=== PATIENT | female | born 1945 | race Caucasian/White ===

== ENCOUNTER → 2018-12-13 | Outpatient (CLI) | payer MEDICARE, OTHER ==
[~2018-12-13] MED LIST: CALC600T4 PO; CETI10TA22 PO; DOCU50CA9 PO; HYDR-2765 PO; LATA2.5D2 EACHEYE; LEVO75TA PO; LOSA1TAB22 PO; MELO7.5T29 PO; MONT10TA49 PO; MULT1TAB52 PO; OMEP20TA63 PO; POLY119P4 PO; PRAM0.255 PO; VITA1CAP7 PO
--- NOTE | 2018-12-13 13:35 | EKG ---
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
[2018-12-13 13:47] LABS: BASO % 1 % (0-3); EOS # 0.1 x10^3/uL (0.0-0.7); EOS % 2 % (0-3); HEMATOCRIT 32.1 % (36.0-47.0); HEMOGLOBIN 11.2 g/dL (12.0-15.5); LYMPH % 35 % (24-48); MEAN CORPUSCULAR HEMOGLOBIN 32 pg (25-35); MEAN CORPUSCULAR HGB CONC 35 g/dL (31-37); MEAN CORPUSCULAR VOLUME 92 fL (79-100); MONO # 0.5 x10^3/uL (0.0-1.1); MONO % 9 % (0-9); NEUT % 52 % (31-73); PLATELET COUNT 219 x10^3/uL (140-400); RED BLOOD COUNT 3.48 x10^6/uL (3.50-5.40); RED CELL DISTRIBUTION WIDTH 13.2 % (11.5-14.5); WHITE BLOOD COUNT 5.7 x10^3/uL (4.0-11.0)
[2018-12-13 14:23] LABS: ALBUMIN 3.9 g/dL (3.4-5.0); ALBUMIN/GLOBULIN RATIO 1.1 (1.0-1.7); CALCIUM 9.2 mg/dL (8.5-10.1); CREATININE 1.2 mg/dL (0.6-1.0); GFR 43.9; TOTAL BILIRUBIN 0.5 mg/dL (0.2-1.0); TOTAL PROTEIN 7.3 g/dL (6.4-8.2)
[2018-12-15 00:07] LABS: HEMOGLOBIN A1C 6.6 % (4.8-5.6)
== END | disposition home or self-care (01) ==
LOC: SURGPAT 12:48
PROVIDERS: ATTEND Neurological Surgery
DX: Z01.818 Encounter for other preprocedural examination (principal); M51.16 Intervertebral disc disorders with radiculopathy, lumbar region; Z88.2 Allergy status to sulfonamides; Z88.5 Allergy status to narcotic agent
CPT/HCPCS: 36415; 80053; 82306; 83036; 85025; 87641; 93005

== ENCOUNTER 2018-12-26 07:15 | Day surgery (SDC) | payer MEDICARE, OTHER ==
[~2018-12-26] VITALS: Ht 160 cm; Wt 81.0 kg
--- NOTE | 2018-12-26 06:39 | HP ---
ADMIT DATE: 12/26/2018. PREOPERATIVE HISTORY AND PHYSICAL DATE OF SURGERY: 12/26/2018 HISTORY OF PRESENT ILLNESS: The patient is a pleasant 73-year-old, who has difficulty with right hip, right buttock, posterior lateral thigh, and leg pain. She notes numbness in her right foot. The problem started on 10/25. She states she bent, felt a pop, and has had pain ever since. She rates her pain as 8/10. Standing or bending increases her pain. Sitting position is painful for her. She has been taking Percocet and resting. She has had surgery on the lumbar side in the past in 2000 and in 2003. PAST MEDICAL/SURGICAL HISTORY: Arthritis, hypertension, diabetes, thyroid disease, cataract, hysterectomy, cholecystectomy, appendectomy, carpal tunnel release, right knee replacement, lumbar surgery in 2000, and lumbar surgery in 2003. FAMILY HISTORY: Alzheimer's, cancer, diabetes, heart disease, and hypertension. SOCIAL HISTORY: Retired; ; quit smoking greater than 5 years ago; drinks alcohol 1-2 times per month. ALLERGIES: MORPHINE. CURRENT MEDICATIONS: Percocet, Robaxin, losartan, Prilosec, meloxicam, Zyrtec, Singulair, Mirapex, Xalatan, multivitamin, Super B-Complex, calcium, and MiraLax stool softener. REVIEW OF SYSTEMS: A 12-point review of systems was obtained and is noncontributory except that mentioned above. NEUROSURGERY EXAMINATION: GENERAL APPEARANCE: Alert, pleasant, in no acute distress. HEAD: Normocephalic and atraumatic. SKIN: Warm and dry. MUSCULOSKELETAL: Lumbar paraspinal muscle bulk is normal, restricted range of motion of the lumbar spine, [id number] tenderness of the lower lumbar spine with palpation, normal range of motion of the lower extremities bilaterally. EXTREMITIES: No clubbing, cyanosis, or edema. NEUROLOGIC: Alert and oriented x3; normal recent and remote memory; strength 5/5 in bilateral lower extremities except for her right EHL, which is 3/5. Sensory is intact to light touch in bilateral lower extremities except for decrease in the dorsum of her right foot with light touch. Reflexes are present and symmetric in lower extremities bilaterally, positive straight leg raising on the right, negative straight leg raising on the left. IMAGING: I reviewed her lumbar MRI scan. There were number of abnormalities. There is grade 1 anterolisthesis of L3 and L4. There is a levoconvex scoliosis of the lumbar spine at L4-L5 on the right. There is extruded disc fragment, which is in the lateral right recess and extends below the disc space associated with significant compression of the right nerve root. At L5-S1, there is left-sided disk bulging. ASSESSMENT/PLAN: I believe the problems at L4-L5 on the right are responsible for pain. The other lumbar issues, I feel, are stable. My recommendation because of the severe pain and footdrop is for her to undergo lumbar microsurgery at L4-L5 on the right side to remove the extruded disk fragment and decompress the nerve root. I did discuss this with her and her in detail. We spoke about the surgery, risks, and expected postoperative course. They understand. They would like to go ahead. THERESA INMAN MD DR: DANIEL/mitchel JOB#: [id number] / [id number] [facility]
[~2018-12-26 07:15] MED LIST changes: +BACITRACIN 50,000 UNIT in IV NORMAL SALINE 1000ML BAG 1,000 ML IRR ONE; +BUPIVACAINE-EPI 0.5%-1:200000 MPF 30 ML VIAL. INJ ONE; +VANCOMYCIN 1GM IVPB FOR OMNI 250 ML IV ONE
[2018-12-26] MEDS ORDERED: THROMBIN TOPICAL 20,000 UNIT SPRAY.SYRN KIT TP ONE (07:39)
[2018-12-26] MEDS ORDERED: KETOROLAC 60 MG/2 ML VIAL. ONE (07:39)
[2018-12-26] MEDS ORDERED: GELATIN SPONGE SIZE 100. ONE (07:39)
[2018-12-26] MEDS ORDERED: PROPOFOL 20 ML IV ONE (07:43)
[2018-12-26] MEDS ORDERED: PROPOFOL 50 ML IV ONE (07:43)
[2018-12-26] MEDS ORDERED: REMIFENTANIL 2 MG VIAL. IV ONE (07:43)
[2018-12-26] MEDS ORDERED: fentaNYL PF VIAL 100 MCG/2 ML VIAL ONE (07:43)
[2018-12-26] MEDS ORDERED: ROCURONIUM 50 MG/5 ML VIAL. ONE (07:43)
[2018-12-26] MEDS ORDERED: 0.9 % SODIUM CHLORIDE 20 ML VIAL. IJ ONE (07:45)
[2018-12-26] MEDS ORDERED: ceFAZolin 2GM PREMIX 2 GM/50 ML BAG IV ONE (08:00)
[2018-12-26] MEDS ORDERED: IV RINGERS,LACTATED 1000ML 1,000 ML IV SCH ×2 (08:15→11:32)
[2018-12-26] MEDS ORDERED: DESFLURANE > 120 MINUTES IH ONE (08:53)
[2018-12-26] MEDS ORDERED: DEXAMETHASONE SOD PHOS 20 MG/5 ML VIAL. ONE (08:53)
[2018-12-26] MEDS ORDERED: PHENYLEPHRINE in 0.9% NACL PF 1 MG/10 ML SYRINGE. IV ONE (09:07)
[2018-12-26] MEDS ORDERED: ONDANSETRON PF 4 MG/2 ML VIAL. ONE (09:27)
[2018-12-26] MEDS ORDERED: ePHEDrine PF IN SALINE 50 MG/10 ML SYRINGE. IV ONE (09:33)
--- NOTE | 2018-12-26 11:08 | DISCH ---
DISCHARGE INSTRUCTIONS Condition on Discharge Condition on Discharge: Stable Activity After Discharge Activity Instructions for Disc: Activity as tolerated, Avoid exertion Other activity instructions: no driving for a week Bathing Instructions: Shower-keep dressing dry Lifting Instructions after Dis: No heavy lifting, No pulling or pushing, Do not lift >10 pounds Diet after Discharge Additional Diet Restrictions: resume home diet Wound Incision Care Wound/Incision Care: Ice to area for comfort Other wound/incision instructi: may remove dressing in 48 hours if dry then may shower, no soaking Contacting the after DC Call your doctor for: Concerns you may have Follow-Up Follow up with: Dr. Inman's nurse in 2 weeks [phone] THERESA INMAN MD Dec 26, 2018 11:08
--- NOTE | 2018-12-26 11:19 | OP ---
DATE OF SURGERY: 12/26/2018 PREOPERATIVE DIAGNOSES: Herniated lumbar disc, L4-L5, right with right lumbar radiculopathy. POSTOPERATIVE DIAGNOSES: Herniated lumbar disc, L4-L5, right with right lumbar radiculopathy. OPERATION PERFORMED: Hemilaminotomy and microdiscectomy, L4-L5, right. The operation was done with EMG monitoring, SSEP monitoring, fluoroscopy, microscopic dissection. SURGEON: Cristhian Inman M.D. TRAINING SYSTEMS OFFICER:LORENA Richard. OPERATIVE INDICATIONS: The patient is a very pleasant 73-year-old, who developed intractable back and right leg pain, which failed conservative measures. She had the above-mentioned findings on imaging studies and I recommended lumbar microsurgery. I spoke with her about the risks, the technique, and the expected postoperative course and she wished for me to go ahead. DESCRIPTION OF PROCEDURE: Following general endotracheal anesthesia, the patient was positioned prone on the Zack frame. Her lumbar region was prepped and draped in a standard fashion. DANYEL hose and AV impulse boots were applied for DVT prophylaxis. A microscope was draped. Fluoroscopy was draped and brought into field. Monitoring was established. Ancef 2 grams and vancomycin 1 gram were given about less than 1 hour prior to initiation of the surgery. Using fluoroscopic guidance, an incision was made directly over the L4-L5 interspace. I dissected down through skin and subcutaneous tissue. The patient had undergone previous surgeries and there was moderate amount of scarring, but we worked through this and I was able to obtain an excellent exposure, placing a [place] micro disc retractor. I brought in the microscope and using the high-speed air drill, I burred down a generous hemilaminotomy. I made a large foraminotomy and there was inferior portion to the disc herniation. I then trimmed away thickened ligamentum flavum, exposing the dura and the exiting L5 root gently retracted the root medially where there was a large bulging disc, which extended inferiorly into the disc space and I incised the annulus and ligament and performed discectomy with pituitary rongeurs. The area was considerably degenerated, but as I worked, I was able to tease back multiple disc fragments and fully decompressed the region. I explored carefully above and below the disc space. There were no retained fragments. I irrigated copiously with antibiotic solution. At this point, then I felt I had an excellent decompression. Hemostasis was excellent. I did coagulate a few epidural veins early on, but there was never any significant hemorrhage whatsoever. Bone wax was also used for any bone bleeding. I irrigated copiously. I closed the wound in layers then with absorbable suture and the skin was closed with 4-0 subcuticular stitch. The surgery went very well. CRISTHIAN INMAN MD DR: DANIEL/mitchel JOB#: [id number] / [id number] [facility]
[2018-12-26] MEDS ORDERED: ONDANSETRON PF 4 MG/2 ML VIAL. IV PRN (11:45)
[2018-12-26] MEDS ORDERED: PROCHLORPERAZINE 10 MG/2 ML VIAL. IV PRN (11:45)
[2018-12-26] MEDS ORDERED: fentaNYL PF VIAL 100 MCG/2 ML VIAL IV PRN (11:45)
[2018-12-26] MEDS ORDERED: HYDROcodone/APAP 7.5/325MG 1 TAB TABLET PO ONE (11:45)
[2018-12-26] MEDS: fentaNYL PF VIAL 100 MCG/2 ML VIAL IV PRN ×2 (11:58→12:37)
[2018-12-26 12:45] VITALS: BP 146/60
--- NOTE | 2018-12-30 23:05 | PATHOLOGY ---
[facility] Accession Number: [id number] . 01 Material submitted: . vertebral column - LUMBAR DISC AND DECOMPRESSION . 01 Clinical history: . Lumbar herniated disc and radiculopathy . 02 Diagnosis: "Lumbar disc and decompression", discectomy and decompression: - Intervertebral disc material with reactive and degenerative changes. - Decalcified bone, periosteum, cartilaginous tissue, fibroadipose connective tissue and skeletal muscle with reactive and degenerative changes. (CLW:linette; 12/30/2018) MBR 12/30/2018 1041 Local . 02 Electronically signed: . Leatha Steele MD, Pathologist NPI- [id number] . 01 Gross description: . Received in formalin labeled "Carolann Linn, lumbar disc and decompression," are several pieces of glistening, fibrous tissue measuring 3.5 x 4.7 x 1.9 cm in aggregate dimensions, containing small fragments of possible bone. The tissue is submitted representatively in cassette A1, following decalcification. (TSD; 12/26/2018) TOB/TOB 12/26/2018 1800 Local . 02 Pathologist provided ICD-10: M51.36 . 02 CPT . 926836, 950342 Specimen Comment: A courtesy copy of this report has been sent to [phone] Specimen Comment: Report sent to Performed at: 01 [facility] [address], [place] [id number] MD Xu Feliciano MD Phone: [phone] Performed at: 02 [facility] [address] [place], [place] [id number] MD Gilberto Rivera MD Phone: [phone]
== END 2018-12-26 13:18 | disposition home or self-care (01) ==
LOC: SURG 07:15
PROVIDERS: ATTEND Neurological Surgery
DX: M51.16 Intervertebral disc disorders with radiculopathy, lumbar region (principal); M19.90 Unspecified osteoarthritis, unspecified site; I10 Essential (primary) hypertension; E11.9 Type 2 diabetes mellitus without complications; Z90.49 Acquired absence of other specified parts of digestive tract; Z90.710 Acquired absence of both cervix and uterus; Z96.651 Presence of right artificial knee joint; Z98.890 Other specified postprocedural states; Z82.49 Family history of ischemic heart disease and other diseases of the circulatory system; Z88.6 Allergy status to analgesic agent; Z88.8 Allergy status to other drugs, medicaments and biological substances; Z86.73 Personal history of transient ischemic attack (TIA), and cerebral infarction without residual deficits; Z87.891 Personal history of nicotine dependence; Z79.899 Other long term (current) drug therapy
CPT/HCPCS: 63030; 76000; 97116; 97162; 97530; A7015; J0171; J0696; J1100; J1885; J2370; J2405; J2704; J3010; J3370; J3490; J7030; J7120